=== PATIENT | male | born 1990 | race Caucasian/White ===

== ENCOUNTER 2019-08-16 13:20 | Emergency (ER) | payer BC ==
--- NOTE | 2019-08-16 13:34 | EDM.PDOC ---
ED HPI GENERAL MEDICAL PROBLEM - General Chief Complaint: General Stated Complaint: HURT RT RIB AREA Time Seen by Provider: 08/16/19 13:33 Source of Information: Reports: Patient History Limitations: Reports: No Limitations - History of Present Illness INITIAL COMMENTS - FREE TEXT/NARRATIVE: HISTORY AND PHYSICAL: History of present illness: Patient is a 28-year-old male presents to the ED with complaint of pain to his right chest wall. He states about 1 week ago he was on a ladder and he fell landing a pipe on his right side. He has been taking tylenol and ibuprofen which does help but over the past couple of days he is having more pain with cough and sneezing and deep breaths. He states he does feel short of breath at times. Denies fevers, chills, nausea, vomiting, abdominal pain. Denies significant past medical history. Review of systems: As per history of present illness and below otherwise all systems reviewed and negative. Past medical history: As per history of present illness and as reviewed below otherwise noncontributory. Surgical history: As per history of present illness and as reviewed below otherwise noncontributory. Social history: No reported history of drug or alcohol abuse. Family history: As per history of present illness and as reviewed below otherwise noncontributory. Physical exam: General: Patient sitting comfortably in no acute distress and nontoxic appearing HEENT: Atraumatic, normocephalic, pupils reactive, negative for conjunctival pallor or scleral icterus, mucous membranes moist, throat clear, neck supple, nontender, trachea midline. No meningeal signs. Lungs: Clear to auscultation, breath sounds equal bilaterally, pain to palpation of right lateral chest wall just below the axilla. skin intact without ecchymosis Heart: S1S2, regular, negative for clicks, rubs, or overt murmur. Abdomen: Soft, nondistended, nontender. Negative for masses or hepatosplenomegaly. Negative for costovertebral tenderness. No rigidity, rebound , guarding. Pelvis: Stable nontender. Genitourinary: Deferred. Rectal: Deferred. Extremities: Atraumatic, negative for cords or calf pain. Neurovascular unremarkable. Neuro: Awake, alert, oriented. Cranial nerves II through XII unremarkable. Cerebellum unremarkable. Motor and sensory unremarkable throughout. Exam nonfocal. Notes: Diagnostics: Right ribs with chest Therapeutics: 60mg Toradol IM Prescriptions: Tramadol Impression: Chest wall contusion Plan: 1. alternate tylenol and motrin as needed. You may take tramadol as needed for severe pain, do not take while driving as it may make you drowsy 2. Use incentive spirometer as discussed 3. Follow up with primary care provider 4. Return to ED as needed as discussed Definitive disposition and diagnosis as appropriate pending reevaluation and review of above. right ribs Pain Score (Numeric/FACES): 8 - Related Data Allergies Allergy/AdvReac Type Severity Reaction Status Date / Time No Known Allergies Allergy Verified 08/16/19 13:34 Home Meds: Home Meds traMADol [Ultram] 50 mg PO Q6H PRN #10 tab 08/16/19 [Rx] ED ROS GENERAL - Review of Systems Review Of Systems: Comprehensive ROS is negative, except as noted in HPI. ED EXAM, GENERAL - Physical Exam Exam: See Below (see dictation) Course - Vital Signs Last Recorded V/S: Last Vital Signs Temp 98.5 F 08/16/19 15:09 Pulse 95 08/16/19 15:09 Resp 16 08/16/19 15:09 BP 116/67 08/16/19 15:09 Pulse Ox 96 08/16/19 15:09 - Orders/Labs/Meds Meds: Medications Discontinued Medications Generic Name Dose Route Start Last Admin Trade Name Freq PRN Reason Stop Dose Admin Ketorolac Tromethamine 60 mg 08/16/19 13:43 08/16/19 14:00 Toradol IM 08/16/19 13:44 60 mg ONETIME ONE Administration Departure - Departure Time of Disposition: 15:16 Disposition: Home, Self-Care 01 Condition: Good Clinical Impression: Chest wall contusion, Right rib fracture - Discharge Information Prescriptions: traMADol [Ultram] 50 mg PO Q6H PRN #10 tab PRN Reason: Pain (Severe 7-10) Referrals: PCP,None [Primary Care Provider] - Forms: ED Department Discharge Additional Instructions: The following information is given to patients seen in the emergency department who are being discharged to home. This information is to outline your options for follow-up care. We provide all patients seen in our emergency department with a follow-up referral. The need for follow-up, as well as the timing and circumstances, are variable depending upon the specifics of your emergency department visit. If you don't have a primary care physician on staff, we will provide you with a referral. We always advise you to contact your personal physician following an emergency department visit to inform them of the circumstance of the visit and for follow-up with them and/or the need for any referrals to a consulting specialist. The emergency department will also refer you to a specialist when appropriate. This referral assures that you have the opportunity for follow-up care with a specialist. All of these measure are taken in an effort to provide you with optimal care, which includes your follow-up. Under all circumstances we always encourage you to contact your private physician who remains a resource for coordinating your care. When calling for follow-up care, please make the office aware that this follow-up is from your recent emergency room visit. If for any reason you are refused follow-up, please contact the [facility] Emergency Department at and asked to speak to the emergency department charge nurse. [facility] [address] [place] [id number] [place] [address] 1. alternate tylenol and motrin as needed. You may take tramadol as needed for severe pain, do not take while driving as it may make you drowsy 2. Use incentive spirometer as discussed 3. Follow up with primary care provider 4. Return to ED as needed as discussed
[2019-08-16] MEDS ORDERED: Ketorolac 60 MG/2 ML SDV IM ONE (13:43)
--- NOTE | 2019-08-16 15:10 | CR ---
INDICATION: Injury. TECHNIQUE: PA chest and 3 views right ribs. FINDINGS: Mildly displaced acute fracture right posterior lateral 6th rib. No other rib fractures. No pneumothorax. Lungs clear without infiltrate or consolidation. Heart size normal. Remainder negative. Dictated by Hung Cornelius MD @ Aug 16 2019 3:05PM Signed by Dr. Hung Cornelius @ Aug 16 2019 3:08PM
== END 2019-08-16 15:39 | disposition home or self-care (01) ==
LOC: MW.ED 13:20
DX: S22.31XA Fracture of one rib, right side, initial encounter for closed fracture (principal); W11.XXXA Fall on and from ladder, initial encounter
CPT/HCPCS: 71101; 99285; J1885; 96372; 99284

== ENCOUNTER 2019-08-18 16:18 | Emergency (ER) | payer BC ==
--- NOTE | 2019-08-18 16:22 | EDM.PDOC ---
ED HPI GENERAL MEDICAL PROBLEM - General Stated Complaint: SOAR THROAT Time Seen by Provider: 08/18/19 16:20 Source of Information: Reports: Patient History Limitations: Reports: No Limitations - History of Present Illness INITIAL COMMENTS - FREE TEXT/NARRATIVE: HISTORY AND PHYSICAL: History of present illness: Patient is a 28-year-old male who presents to the emergency room today with complaints of a dry nonproductive cough which has been ongoing since approximately Thanksgiving. He states over the past 2 days the cough is uncomfortable and has a burning sensation which she describes as "coughing fire ". Patient denies any fever, chills, headache, change in vision, syncope or near syncope. Denies any chest pain, back pain, shortness of breath. Denies any abdominal pain, nausea, vomiting, diarrhea, constipation or dysuria. Patient has been eating and drinking appropriately. Review of systems: As per history of present illness and below otherwise all systems reviewed and negative. Past medical history: As per history of present illness and as reviewed below otherwise noncontributory. Surgical history: As per history of present illness and as reviewed below otherwise noncontributory. Social history: See social history for further information Family history: As per history of present illness and as reviewed below otherwise noncontributory. Physical exam: General: Well-developed and well-nourished 28-year-old male. Alert and oriented. Nontoxic appearing and in no acute distress. HEENT: Atraumatic, normocephalic, pupils equal and reactive bilaterally, negative for conjunctival pallor or scleral icterus, mucous membranes moist, TMs normal bilaterally, throat clear, neck supple, nontender, trachea midline. No drooling or trismus noted. No meningeal signs. No hot potato voice noted. Lungs: Clear to auscultation, breath sounds equal bilaterally, chest nontender. Heart: S1S2, regular rate and rhythm without overt murmur Abdomen: Soft, nondistended, nontender. Skin: Intact, warm, dry. No lesions or rashes noted. Extremities: Atraumatic, moves all extremities per self without difficulty or deficits, negative for cords or calf pain. Neurovascular unremarkable. Neuro: Awake, alert, oriented. Cranial nerves II through XII unremarkable. Cerebellum unremarkable. Motor and sensory unremarkable throughout. Exam nonfocal. Notes: Diagnostics are unremarkable. Due to patient's physical examination and longevity of symptoms will treat for atypicals. Supportive care measures were reviewed and discussed. Voices understanding and is agreeable to plan of care. Denies any further questions or concerns at this time. Diagnostics: Strep, Influenza Therapeutics: None Prescription: Zpak Impression: Bronchitis Plan: 1. Please use Tylenol and/or Ibuprofen as needed for pain and fever management. 2. Get plenty of Rest. Encourage fluids to prevent dehydration. 3. Please follow up with your primary care provider. Return to the ED as needed as discussed. Definitive disposition and diagnosis as appropriate pending reevaluation and review of above. throat Pain Score (Numeric/FACES): 10 - Related Data Allergies Allergy/AdvReac Type Severity Reaction Status Date / Time No Known Allergies Allergy Verified 08/18/19 16:31 Home Meds: Home Meds traMADol [Ultram] 50 mg PO Q6H PRN #10 tab 08/16/19 [Rx] Azithromycin [Zithromax] 1 dose PO DAILY 5 Days #6 tab 08/18/19 [Rx] Past Medical History - Past Health History Medical/Surgical History: Denies Medical/Surgical History - Past Surgical History HEENT Surgical History: Reports: Oral Surgery Musculoskeletal Surgical History: Reports: Other (See Below) Other Musculoskeletal Surgeries/Procedures:: leg sx Social & Family History - Family History Family Medical History: Noncontributory ED ROS ENT - Review of Systems Review Of Systems: Comprehensive ROS is negative, except as noted in HPI. ED EXAM, ENT - Physical Exam Exam: See Below (See dictation) Course - Vital Signs Last Recorded V/S: Last Vital Signs Temp 96.8 F 08/18/19 16:32 Pulse 80 08/18/19 16:32 Resp 16 08/18/19 16:32 BP 141/93 H 08/18/19 16:32 Pulse Ox 96 08/18/19 16:32 - Orders/Labs/Meds Orders: Active Orders 24 hr Category Date Time Status Chest 2V [CR] Stat Exams 08/18/19 16:46 Taken CULTURE STREP A CONFIRMATION [RM] Stat Lab 08/18/19 16:30 Results STREP SCRN A RAPID W CULT CONF [RM] Stat Lab 08/18/19 16:30 Results Departure - Departure Time of Disposition: 17:12 Disposition: Home, Self-Care 01 Clinical Impression: Bronchitis - Discharge Information Prescriptions: Azithromycin [Zithromax] 1 dose PO DAILY 5 Days #6 tab Instructions: Acute Bronchitis, Adult, [id number] Referrals: PCP,None [Primary Care Provider] - Additional Instructions: The following information is given to patients seen in the emergency department who are being discharged to home. This information is to outline your options for follow-up care. We provide all patients seen in our emergency department with a follow-up referral. The need for follow-up, as well as the timing and circumstances, are variable depending upon the specifics of your emergency department visit. If you don't have a primary care physician on staff, we will provide you with a referral. We always advise you to contact your personal physician following an emergency department visit to inform them of the circumstance of the visit and for follow-up with them and/or the need for any referrals to a consulting specialist. The emergency department will also refer you to a specialist when appropriate. This referral assures that you have the opportunity for follow-up care with a specialist. All of these measure are taken in an effort to provide you with optimal care, which includes your follow-up. Under all circumstances we always encourage you to contact your private physician who remains a resource for coordinating your care. When calling for follow-up care, please make the office aware that this follow-up is from your recent emergency room visit. If for any reason you are refused follow-up, please contact the [facility] Emergency Department at and asked to speak to the emergency department charge nurse. [facility] [address] [place] [id number] [address] 1. Please use Tylenol and/or Ibuprofen as needed for pain and fever management. 2. Get plenty of Rest. Encourage fluids to prevent dehydration. 3. Please follow up with your primary care provider. Return to the ED as needed as discussed. - My Orders Last 24 Hours: My Active Orders 08/18/19 16:30 CULTURE STREP A CONFIRMATION [RM] Stat STREP SCRN A RAPID W CULT CONF [RM] Stat 08/18/19 16:46 Chest 2V [CR] Stat - Assessment/Plan Last 24 Hours: My Active Orders 08/18/19 16:30 CULTURE STREP A CONFIRMATION [RM] Stat STREP SCRN A RAPID W CULT CONF [RM] Stat 08/18/19 16:46 Chest 2V [CR] Stat
--- NOTE | 2019-08-18 17:15 | CR ---
INDICATION: burning sensation when coughing in upper chest TECHNIQUE: Chest radiograph 2 views COMPARISON: 08/16/19 FINDINGS: Mediastinum: The mediastinum is normal in appearance. The heart silhouette is normal in size and morphology. Lung: Both lungs are unremarkable in appearance. No sign of pleural effusion seen. No pneumothorax is identified. Bone and Soft tissue: Unremarkable for age. IMPRESSION: 1. No acute cardiopulmonary disease is seen. Dictated by: Gabino Corado MD @ 08/18/2019 17:14:12 (Electronically Signed)
== END 2019-08-18 17:27 | disposition home or self-care (01) ==
LOC: MW.ED 16:18
DX: J40 Bronchitis, not specified as acute or chronic (principal)
CPT/HCPCS: 71046; 71046-26; 87081; 87804; 87880-QW; 99283; 99283-25

== ENCOUNTER 2021-11-14 10:54 | Emergency (ER) | payer SELFPAY ==
[2021-11-14] MEDS ORDERED: cefTRIAXone 500 MG in Lidocaine 1% 1 ML IM ONE (11:16)
[2021-11-14] MEDS: Lidocaine 1% PF 2 ML SDV INJECT ONE ×2 (11:35→12:04)
[2021-11-16 15:12] LABS: C.TRACHOMATIS BY TMA Negative (Negative); N.GONORRHOEAE BY TMA Negative (Negative)
== END 2021-11-14 11:54 | disposition home or self-care (01) ==
LOC: MW.ED 10:54
DX: Z20.2 Contact with and (suspected) exposure to infections with a predominantly sexual mode of transmission (principal)
CPT/HCPCS: 81003; 87491; 87591; 96372; 99283; J0696; 99282